=== PATIENT | male | born 1955 | race African-American/Black ===

== ENCOUNTER → 2020-05-01 00:55 | Outpatient (CLI) | payer OTHER, SELFPAY ==
[2020-05-01 19:08] LABS: SARS-CoV-2 RNA PCR Negative
== END ==
PROVIDERS: PCP Family Medicine; Visit Provider Internal Medicine Gastroenterology
DX: Z01.812 Encounter for preprocedural laboratory examination (principal); Z20.822 Contact with and (suspected) exposure to COVID-19
CPT/HCPCS: C9803; U0003; U0005

== ENCOUNTER 2020-05-04 01:02 | Day surgery (SDC) | payer OTHER, SELFPAY ==
[2020-04-27 14:08] VITALS: BMI 25.4
--- NOTE | 2020-05-03 13:09 | WPDANESEPPF ---
Anes - Initial Pre Proc Eval Procedure: Operation Date: 05/04/20 07:30 Proposed Procedures p Screening Colonoscopy - Luis Buchanan MD Date/Time: 05/03/20 13:09 Surgeon: Luis Buchanan MD Pre Op Diagnosis: neoplasm screening Patient Data Age: 65 Gender: M Height: 1.88 m Weight: 90 kg Allergies Allergy/AdvReac Type Severity Reaction Status Date / Time No Known Allergies Allergy Unknown Verified 05/04/20 06:23 Home Medications Medication Instructions Recorded Confirmed Type rosuvastatin 40 mg tablet 40 mg PO DAILY #90 tablet 08/02/19 05/04/20 Rx amlodipine 10 mg tablet 10 mg PO DAILY #90 tablet 11/28/19 05/04/20 Rx aspirin 81 mg tablet,delayed 81 mg PO DAILY 01/25/20 05/04/20 History release garlic 300 mg PO DAILY 01/25/20 05/04/20 History glucosamine sulfate 500 mg tablet 500 mg PO DAILY 01/25/20 05/04/20 History omega-3 fatty acids 1,000 mg 1,000 mg PO DAILY 01/25/20 05/04/20 History capsule turmeric 400 mg capsule 400 mg PO DAILY 01/25/20 05/04/20 History sodium,potassium,mag sulfates 17.5 See Rx Instructions PO .COMPLEX 04/10/20 05/04/20 Rx gram-3.13 gram-1.6 gram oral soln #354 ml Patient hx anesthesia problems: none Family hx anesthesia problems: none PMFSH Past Medical History Medical History Hyperlipidemia Primary hypertension Family History Family History Father Diabetes mellitus Hypertension Grandparent Acute myocardial infarction Sibling Acute myocardial infarction Social History Social History Smoking packs per day: 1 Smoking cigarettes per day: 20.0 Years smoked: 40 Smoking pack-years: 40.00 Smoking status: Former smoker Tobacco type: cigarettes Second hand tobacco smoke exposure: No Smoking end date: 03/02/07 Alcohol intake: current Drinks per week: 8 Substance use: never Substance use type: does not use Living arrangements: with family Gender identity (if verbalized by the patient): Female Spiritual care concerns: No Anes - Eval Final PreProcedure Day of Procedure 05/03/20 13:09 Patient weight: overweight Heart: regular rate and rhythm Lungs: clear to auscultation and normal air movement Airway: Mallampati scale class II Neurological: alert and oriented Last oral intake: >/= 8 hours ASA classification: II Emergent: no Anesthetic plan: proceed Anesthesia type and monitoring: general GIVS Informed Consent: The patient's anesthetic plan and its attendant risks and benefits were discussed with the patient/family/POA. Questions were solicited and answers provided to the satisfaction of the patient/family/POA.
[2020-05-04 06:24] VITALS: BP 137/81; PULSE 76; RESP 76; TEMP 36.9; O2SAT 99; BMI 25.6
[2020-05-04] MEDS: LACTATED RINGERS 1,000 ML 150 ML IV CONT (06:33)
--- NOTE | 2020-05-04 07:05 | PM.HPGS ---
History of Present Illness History of Present Illness Consent: Risks, benefits, and alternatives have been discussed and questions answered. Patient agrees to proceed with procedure. Chief complaint: neoplasm screening Narrative: Maldonado Villanueva is a 65 year old male Referred for colon cancer screening [facility] Past Medical History Medical History Hyperlipidemia Primary hypertension Family History Family History Father Diabetes mellitus Hypertension Grandparent Acute myocardial infarction Sibling Acute myocardial infarction Social History Social History Smoking packs per day: 1 Smoking cigarettes per day: 20.0 Years smoked: 40 Smoking pack-years: 40.00 Smoking status: Former smoker Tobacco type: cigarettes Second hand tobacco smoke exposure: No Smoking end date: 03/02/07 Alcohol intake: current Drinks per week: 8 Substance use: never Substance use type: does not use Living arrangements: with family Gender identity (if verbalized by the patient): Female Spiritual care concerns: No Meds Home Medications and Allergies Home Medications Medication Instructions Recorded Confirmed Type rosuvastatin 40 mg tablet 40 mg PO DAILY #90 tablet 08/02/19 05/04/20 Rx amlodipine 10 mg tablet 10 mg PO DAILY #90 tablet 11/28/19 05/04/20 Rx aspirin 81 mg tablet,delayed 81 mg PO DAILY 01/25/20 05/04/20 History release garlic 300 mg PO DAILY 01/25/20 05/04/20 History glucosamine sulfate 500 mg tablet 500 mg PO DAILY 01/25/20 05/04/20 History omega-3 fatty acids 1,000 mg 1,000 mg PO DAILY 01/25/20 05/04/20 History capsule turmeric 400 mg capsule 400 mg PO DAILY 01/25/20 05/04/20 History sodium,potassium,mag sulfates 17.5 See Rx Instructions PO .COMPLEX 04/10/20 05/04/20 Rx gram-3.13 gram-1.6 gram oral soln #354 ml Allergies Allergy/AdvReac Type Severity Reaction Status Date / Time No Known Allergies Allergy Unknown Verified 05/04/20 06:23 Vital Signs Vital Signs - 24 hr 05/04/20 06:24 Temperature 36.9 C Pulse Rate 76 Respiratory Rate 76 H Blood Pressure 137/81 Pulse Oximetry 99 Exam Resp: Auscultation: clear to auscultation bilaterally Cardio: Rate: regular rate Rhythm: regular rhythm GI: GI Palp: Yes Soft to palpation and No Tenderness to palpation present (GI) Assessment and Plan Assessment and plan (1) Colon cancer screening: Code(s): Z12.11 - Encounter for screening for malignant neoplasm of colon Status: Acute Assessment and Plan: Colonoscopy with possible biopsy or polypectomy or cautery or injection of substances.
[2020-05-04 07:46] VITALS: BP 96/61; PULSE 68; RESP 19; O2SAT 97
[2020-05-04 07:56] VITALS: BP 99/72; PULSE 68; RESP 18; O2SAT 99
[2020-05-04 08:06] VITALS: BP 124/74; PULSE 63; RESP 20; O2SAT 100
== END 2020-05-04 08:10 | disposition home or self-care (01) ==
PROVIDERS: PCP Family Medicine; Visit Provider Internal Medicine Gastroenterology
PROC: 0DJD8ZZ Inspection of Lower Intestinal Tract, Via Natural or Artificial Opening Endoscopic (ICD-10-PCS; CPT 45378; principal; 2020-05-04 07:30)
DX: Z12.11 Encounter for screening for malignant neoplasm of colon (principal); K57.30 Diverticulosis of large intestine without perforation or abscess without bleeding; Z79.82 Long term (current) use of aspirin; K64.8 Other hemorrhoids; I10 Essential (primary) hypertension; E78.5 Hyperlipidemia, unspecified; Z87.891 Personal history of nicotine dependence
CPT/HCPCS: 45378; J2001; J2704; J7120